=== PATIENT | male | born 1990 | race African-American/Black ===

== ENCOUNTER 2018-11-25 20:18 | Emergency (ER) | payer SELFPAY | END 2018-11-25 21:52 | disposition home or self-care (01) | LOC: ERS 20:18 | DX: M70.842 Other soft tissue disorders related to use, overuse and pressure, left hand (principal); M70.841 Other soft tissue disorders related to use, overuse and pressure, right hand; X50.0XXA Overexertion from strenuous movement or load, initial encounter | CPT/HCPCS: 99283 ==

== ENCOUNTER 2019-01-27 14:59 | Emergency (ER) | payer SELFPAY | END 2019-01-27 15:30 | disposition home or self-care (01) | LOC: ERS 14:59 | DX: M79.641 Pain in right hand (principal); M62.830 Muscle spasm of back; F17.210 Nicotine dependence, cigarettes, uncomplicated | CPT/HCPCS: 99283 ==

== ENCOUNTER 2019-04-20 21:12 | Emergency (ER) | payer SELFPAY ==
--- NOTE | 2019-04-21 00:26 | RAD ---
XR Hand Rt 3 View STANDARD: 04/20/2019 9:16 PM CLINICAL INDICATION: Right hand pain COMPARISON: None. FINDINGS: Bones: No acute osseous abnormality. Joints: Joint spaces are preserved.. Soft Tissue: Soft tissues are normal appearing.. IMPRESSION: No acute osseous abnormality..
== END 2019-04-20 23:08 | disposition home or self-care (01) ==
LOC: ERS 21:12
DX: M65.331 Trigger finger, right middle finger (principal); F17.210 Nicotine dependence, cigarettes, uncomplicated

== ENCOUNTER 2019-06-01 20:19 | Emergency (ER) | payer SELFPAY ==
[2019-06-01] MEDS ORDERED: Ketorolac Tromethamine 30 MG/ML VIAL ONE (21:29)
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
== END 2019-06-01 22:10 | disposition home or self-care (01) ==
LOC: ERS 20:19
DX: M54.5 Low back pain (principal); F17.210 Nicotine dependence, cigarettes, uncomplicated; V49.9XXA Car occupant (driver) (passenger) injured in unspecified traffic accident, initial encounter
CPT/HCPCS: 72072; 72100; 96372; J1885

== ENCOUNTER 2019-08-15 23:24 | Emergency (ER) | payer SELFPAY ==
[2019-08-16] MEDS ORDERED: predniSONE 20 MG TAB ONE (00:59)
[2019-08-16] MEDS ORDERED: Albuterol Sulfate 2.5 mg/3 ml Neb ONE (01:26)
--- NOTE | 2019-08-16 07:45 | RAD ---
XR Chest 1 View Portable History: Chest pain. Breathing difficulty Comparison: None. Findings: Lungs are clear. No pneumothorax or effusion. Cardiac silhouette and mediastinal contours a re within normal limits. No acute osseous abnormality. Impression: No acute intrathoracic abnormality.
== END 2019-08-16 02:05 | disposition home or self-care (01) ==
LOC: ERS 23:24
DX: J20.9 Acute bronchitis, unspecified (principal); F17.210 Nicotine dependence, cigarettes, uncomplicated
CPT/HCPCS: 71045; 94640; J7512; J7611; J7620

== ENCOUNTER 2019-08-17 21:53 | Emergency (ER) | payer SELFPAY ==
--- NOTE | 2019-08-17 22:21 | RAD ---
TWO VIEW CHEST: 08/17/19 HISTORY: Chest wall pain. Lung rodriguez are clear. Heart and mediastinum appear normal. Osseous structures unremarkable. IMPRESSION: Negative chest. POS: [facility]
== END 2019-08-17 22:45 | disposition home or self-care (01) ==
LOC: ERS 21:53
DX: R07.89 Other chest pain (principal); J20.9 Acute bronchitis, unspecified; F17.210 Nicotine dependence, cigarettes, uncomplicated
CPT/HCPCS: 71046; 93005; 94640; J7620

== ENCOUNTER 2019-08-22 23:29 | Emergency (ER) | payer SELFPAY ==
--- NOTE | 2019-08-22 23:52 | RAD ---
EXAM: CHEST ONE VIEW HISTORY: Cough. COMPARISON: 08/16/2019 FINDINGS: The cardiac silhouette and pulmonary vasculature is within normal limits. The lungs are clear. The os seous structures are intact. There has been no interval change from prior exam. IMPRESSION: No acute cardiopulmonary process.
== END 2019-08-23 00:47 | disposition home or self-care (01) ==
LOC: ERS 23:29
DX: J20.9 Acute bronchitis, unspecified (principal); F17.210 Nicotine dependence, cigarettes, uncomplicated
CPT/HCPCS: 71045

== ENCOUNTER 2019-11-14 08:55 | Emergency (ER) | payer SELFPAY | END 2019-11-14 10:13 | disposition home or self-care (01) | LOC: ERS 08:55 | DX: S39.011A Strain of muscle, fascia and tendon of abdomen, initial encounter (principal); R36.9 Urethral discharge, unspecified; F17.210 Nicotine dependence, cigarettes, uncomplicated; X58.XXXA Exposure to other specified factors, initial encounter | CPT/HCPCS: 99283 ==

== ENCOUNTER 2020-03-29 23:20 | Emergency (ER) | payer SELFPAY ==
[2020-03-30 00:14] LABS: Bilirubin Negative (Negative); Blood, Urine Negative (Negative); Clarity Clear (Clear); Glucose, Urine (Dipstick) Normal (Negative); Ketone, Urine Negative (Negative); Leukocyte Negative Leu/uL (Negative); Nitrite Negative (Negative); Protein, Urine (Dipstick) Negative (Neg-Trace); Specific Gravity, Urine 1.022 (1.002-1.036); Urobilinogen Normal mg/dL (Less than 2); pH, Urine 6.5 (5.0-9.0)
== END 2020-03-30 02:30 | disposition home or self-care (01) ==
LOC: ERS 23:20
DX: M54.5 Low back pain (principal); F17.210 Nicotine dependence, cigarettes, uncomplicated; D57.3 Sickle-cell trait
CPT/HCPCS: 81003; 99283

== ENCOUNTER 2021-06-20 23:44 | Emergency (ER) | payer SELFPAY | END 2021-06-21 00:16 | disposition home or self-care (01) | LOC: ERS 23:44 | DX: S46.912A Strain of unspecified muscle, fascia and tendon at shoulder and upper arm level, left arm, initial encounter (principal); X50.9XXA Other and unspecified overexertion or strenuous movements or postures, initial encounter; F17.210 Nicotine dependence, cigarettes, uncomplicated | CPT/HCPCS: 99283 ==

== ENCOUNTER 2021-07-14 21:59 | Emergency (ER) | payer SELFPAY | END 2021-07-14 22:41 | disposition home or self-care (01) | LOC: ERS 21:59 | DX: M25.532 Pain in left wrist (principal) ==

== ENCOUNTER 2023-02-15 21:43 | Emergency (ER) | payer SELFPAY | END 2023-02-15 22:15 | disposition home or self-care (01) | LOC: ERS 21:43 | DX: M62.838 Other muscle spasm (principal); F17.210 Nicotine dependence, cigarettes, uncomplicated | CPT/HCPCS: 99283 ==